=== PATIENT | male | born 1965 ===

== ENCOUNTER → 2021-07-06 12:00 | Outpatient (CLI) | payer OTHER, SELFPAY ==
[2021-07-06 14:26] LABS: COVID19 -Nasal RAPID Negative (Negative)
== END ==
PROVIDERS: Referring Provider Nurse Practitioner Family; Visit Provider Nurse Practitioner Family
DX: Z20.822 Contact with and (suspected) exposure to COVID-19 (principal); R05.9 Cough, unspecified
CPT/HCPCS: 87635